=== PATIENT | female | born 1985 | race African-American/Black ===

== ENCOUNTER 2016-12-22 12:43 | Emergency (ER) | payer MEDICAID, OTHER ==
[~2016-12-22] VITALS: Ht 175.3 cm; Wt 94.2 kg
[~2016-12-22 12:43] MED LIST: LISI-167 PO
[2016-12-22] MEDS ORDERED: SODIUM CHLORIDE 0.9% 1,000ML IVBOLUS ONE (13:30)
[2016-12-22] MEDS ORDERED: SODIUM CHLORIDE FLUSH 10ML SYR IVF ONE (13:30)
[2016-12-22 14:10] LABS: HEMATOCRIT 38.1 % (34.6-47.8); HEMOGLOBIN 12.9 g/dL (11.7-16.4); WHITE BLOOD COUNT 5.5 x10^3/uL (3.4-10)
[2016-12-22 14:12] LABS: BLOOD UREA NITROGEN 10 mg/dL (7-18)
[2016-12-22 14:59] VITALS: BP 131/89
== END 2016-12-22 16:16 | disposition home or self-care (01) ==
LOC: ED 16:00
DX: R55 Syncope and collapse (principal); I10 Essential (primary) hypertension
CPT/HCPCS: 36415; 80048; 81003; 82040; 84703; 85025; 93005; 96360; 96361; 99285; J7030